=== PATIENT | female | born 1940 | race Caucasian/White ===

== ENCOUNTER 2017-11-16 11:43 | Day surgery (SDC) | payer MEDICARE, OTHER ==
[~2017-11-16] VITALS: Ht 170.2 cm; Wt 126.5 kg
[2017-11-16] MEDS ORDERED: LIDOCAINE 1%, 2ML ONE (12:25)
[2017-11-16] MEDS ORDERED: LACTATED RINGERS 1,000 ML IV SCH (12:31)
[2017-11-16] MEDS ORDERED: ALLO100T30 PO (12:44)
[2017-11-16] MEDS ORDERED: ALBU8.5H8 INH (12:44)
[2017-11-16] MEDS ORDERED: ACET325T14 PO (12:44)
[2017-11-16] MEDS ORDERED: ESZO1TAB8 PO (12:44)
[2017-11-16] MEDS ORDERED: SYMBICORT INH (12:44)
[2017-11-16] MEDS ORDERED: ASPI-496 PO (12:44)
[2017-11-16] MEDS ORDERED: MULT-658 PO (12:44)
[2017-11-16] MEDS ORDERED: IBUP200C8 PO (12:44)
[2017-11-16] MEDS ORDERED: TRIA1CAP3 PO (12:44)
[2017-11-16] MEDS ORDERED: SIMV20TA3 PO (12:44)
[2017-11-16] MEDS ORDERED: GABA300C10 PO (12:44)
[2017-11-16] MEDS ORDERED: ESTRADIOL PO (12:44)
[2017-11-16] MEDS ORDERED: FURO20TA3 PO (12:44)
[2017-11-16 12:49] VITALS: BP 124/74
[2017-11-16] MEDS ORDERED: LIDOCAINE 1%, 2ML SQ PRN (13:00)
[2017-11-16 13:06] LABS: ASPARTATE AMINO TRANSFERASE 16 U/L (15-37); BLOOD UREA NITROGEN 25 mg/dL (7-18)
[2017-11-16] MEDS ORDERED: FENTANYL PF 100 MCG/2ML ONE (14:54)
[2017-11-16] MEDS ORDERED: EPINEPHRINE 1 MG/ML, 1ML ONE (15:40)
[2017-11-16] MEDS ORDERED: BUPIVACAINE/PF 0.5% ONE (15:40)
[2017-11-16] MEDS ORDERED: NEOSPORIN OINT, 15GM ONE (15:40)
[2017-11-16] MEDS ORDERED: PROPOFOL 10 MG/ML, 20ML ONE (15:56)
[2017-11-16] MEDS ORDERED: CEFAZOLIN 1,000 MG ONE (15:56)
[2017-11-16] MEDS ORDERED: MIDAZOLAM 1 MG/ML, 2ML ONE (16:11)
[2017-11-16] MEDS ORDERED: ALBUTEROL SULFATE 2.5 MG/3 ML NPPB PRN (16:30)
[2017-11-16] MEDS ORDERED: PROMETHAZINE 25 MG/ML, 1ML IV PRN (16:30)
[2017-11-16] MEDS ORDERED: FENTANYL PF 100 MCG/2ML IV PRN (16:30)
[2017-11-16] MEDS ORDERED: ACETAMINOPHEN 325 MG TABLET PO PRN (16:30)
[2017-11-16] MEDS ORDERED: OXYcodone 5 MG/5 ML ORAL.SOL UDC PO PRN (16:30)
== END 2017-11-16 18:15 ==
LOC: OUT 11:43
PROVIDERS: ATTEND Orthopaedic Surgery
DX: G56.02 Carpal tunnel syndrome, left upper limb (principal); Z73.9 Problem related to life management difficulty, unspecified; Z87.891 Personal history of nicotine dependence
CPT/HCPCS: 36415; 64721; 80053; 93005; J0171; J0690; J2250; J2704; J3010; J3490; J7120